=== PATIENT | male | born 1985 | race Caucasian/White ===

== ENCOUNTER 2021-04-07 15:49 | Outpatient (CLI) | payer BC, SELFPAY ==
--- NOTE | ~2021-04-07 | US_ITS ---
US scrotum doppler DATE: 04/07/2021 16:48 INDICATION: Left scrotal mass TECHNIQUE: Real-time imaging and color flow imaging of the scrotal contents COMPARISON: None FINDINGS: The right testicle measures 5.1 x 2.7 x 2.7 cm. The left testicle measures 4.8 x 2.3 x 3.5 cm. No testicular mass lesion or torsion is detected. There is an 8 x 7 x 8 mm extratesticular hypoechoic soft tissue lesion inferior to the left testicle. There is surrounding hypervascularity. This may represent epididymitis at the tail of the epididymis or other inflammatory or infectious process. No hydrocele or varicocele is demonstrated. IMPRESSION: Focal 8 x 7 x 8 mm hypoechoic solid area inferior to the left testicle with surrounding v ascularity, likely inflammatory or infectious. Consider epididymitis of the left epididymal tail No evidence of testicular mass lesion or torsion Reviewed, dictated and finalized at [facility]. Reviewed, dictated and finalized at [facility]. IMPRESSION: Focal 8 x 7 x 8 mm hypoechoic solid area inferior to the left testi ritesh with surrounding vascularity, likely inflammatory or infectious. Consider e pididymitis of the left epididymal tail No evidence of testicular mass lesion or torsion
== END 2021-04-07 15:50 | disposition home or self-care (01) ==
PROVIDERS: PCP Physician Assistant; Visit Provider Nurse Practitioner Adult Health
DX: N50.89 Other specified disorders of the male genital organs (principal)
CPT/HCPCS: 76870; 93976

== ENCOUNTER 2021-05-07 16:04 | Outpatient (CLI) | payer BC, SELFPAY ==
--- NOTE | ~2021-05-07 | US_ITS ---
EXAMINATION: US scrotum doppler EXAM DATE: 05/07/2021 16:39 INDICATION: Mass of left testicle/epididymis, 1 month f/u following antibiotics. TECHNIQUE: Multiple grayscale and Doppler images of the testicles and scrotum were obtained bilateral ly. Comparison is made to prior examination from 04/07/2021. FINDINGS: Right testicle measures 5.2 x 4.0 x 2.6 cm and is morphologically normal. Low resistance Doppler heather w confirmed. The epididymis is unremarkable. There is no hydrocele or varicocele. Left testicle measures 4.4 x 3.4 x 2.2 cm and is morphologically normal. Low resistance Doppler flow confirmed. Epididymal head and body are unremarkable. In region of the tail of the epididymis again there is hypoechoic masslike region measuring 7 x 6 x 8 mm. No vascularity demonstrated within this. On couple of the images there is possibility of anechoic fluid layering on top of more homogeneous pr oteinaceous fluid dependently. On prior study this also appears without vascularity, but with surroun ding hypervascularity likely inflammation which has resolved. There is no hydrocele or varicocele. IMPRESSION: Persistent lesion in region of left epididymal tail, possibly proteinaceous cystic versus avascular solid. Given that this is reportedly clinically palpable could consider obtaining clinical follow-up and repeat imaging if it enlarges. Or histologic correlation as indicated clinically. Reviewed, dictated and finalized at [facility]. [employer] IMPRESSION: Persistent lesion in region of left epididymal tail, possibly prote inaceous cystic versus avascular solid. Given that this is reportedly clinicall y palpable could consider obtaining clinical follow-up and repeat imaging if it enlarges. Or histologic correlation as indicated clinically.
== END 2021-05-07 16:05 | disposition home or self-care (01) ==
PROVIDERS: PCP Physician Assistant; Visit Provider Nurse Practitioner Adult Health
DX: N50.89 Other specified disorders of the male genital organs (principal)
CPT/HCPCS: 76870; 93976

== ENCOUNTER 2023-05-11 13:21 | Emergency (ER) | payer BC, SELFPAY ==
--- NOTE | ~2023-05-11 | XR_ITS ---
EXAM: XR lumbar spine 2-3V DATE: 05/11/2023 14:47 HISTORY: mid low back pain,injured one week ago doing squats . COMPARISON: None available. FINDINGS: 5 nonrib-bearing lumbar-type vertebral bodies. Lumbar straightening with a mild angular la teral kyphosis centered at L3-4. Pedicles intact. Normal vertebral body alignment. Vertebral body hei ghts preserved. Mild disc space narrowing at L4-5 and L5-S1. Normal facets and posterior elements. No fracture or dislocation. IMPRESSION: No acute fracture or traumatic malalignment detected in the lumbar spine. Reviewed, dictated and finalized at location [facility]. [employer]
[2023-05-11 13:46] VITALS: BP 120/95; PULSE 85; RESP 16; TEMP 36.9; O2SAT 100
--- NOTE | 2023-05-11 14:16 | ED.BACK ---
HPI - Back Pain/Injury General Chief Complaint: Back Pain/Injury Stated Complaint: LOW BACK PAIN Time Seen by Provider: 05/11/23 14:16 Source: patient, RN notes reviewed and old records reviewed Mode of arrival: ambulatory Limitations: no limitations History of Present Illness HPI Narrative: 37 year old male who [facility] with complaints of lumbar back pain which initially started a week from last Tuesday when he was doing squats. Patient states that he rested for a week before exercising again and yesterday he resumed exercising and was doing lifts and now today back pain has increased. Patient reports that he has no radiation of pain down his legs, denies any bowel or bladder dysfunction or any saddle paraesthesia. MD elicited complaint: back pain and back injury Pertinent past history: other (hurt back exercising) Onset (ago): week(s) (initially 10 days ago) Pain scale (0-10): 4 Location: lumbar spine Radiation: none Exacerbating factors: movement and other (changing positions) Treatments prior to arrival: NSAIDS and other (rest) Related Data Allergies Allergy/AdvReac Type Severity Reaction Status Date / Time No Known Allergies Allergy Unverified 02/01/23 08:19 Review of Systems Review of Systems: CONSTITUTIONAL: Denies fever, chills, or sweats. CARDIOVASCULAR: Denies chest pain, palpitations, or edema. RESPIRATORY: Denies cough or dyspnea. GASTROINTESTINAL: Denies abdominal pain, nausea, vomiting, or diarrhea. GENITOURINARY: Denies dysuria or hematuria. SKIN: Denies rash or itching. MUSCULOSKELETAL: Reports lumbar back pain. no other Joint pain or myalgia. NEUROLOGIC: Denies headache, numbness, or weakness. All systems reviewed & are unremarkable except as noted in HPI and below [facility] Family History Family History (System 02/01/23 @ 08:19 by Malcolm Alejo) Father Hypertension Father Hypertension Sibling Hypertension Social History Social History (System 02/01/23 @ 08:19 by Malcolm Alejo) Smoking status: Never smoker Second hand tobacco smoke exposure: No Alcohol intake: current Substance use: unknown Lack of Transportation: No Lack of Food: Never True Current Housing: I Have Housing Concerned About Future Housing: No Difficulty Paying Gas/Electric Bills: No Difficulty Paying for Meds: No Currently Unemployed: No Education: Master's Degree or Higher Difficulty w/ Childcare or Family Care: No Comments At time of signature, agree with nursing past medical, surgical, social and family history. There is no relevant family history pertinent to the presenting complaint Exam Narrative: GENERAL: Well-appearing, well-nourished, and in no acute distress. HEAD: Normocephalic, atraumatic. EYES: PERRLA and EOMI. NECK: Supple. No lymphadenopathy. CHEST: Clear to auscultation. No respiratory distress.SAO2 100% on room air HEART: Regular rate and rhythm. Distal pulses palpable and equal, cap refill <3 seconds ABDOMEN: Soft, nontender, nondistended, normal active bowel sounds, no palpable or pulsatile masses. No CVA tenderness MUSCULOSKELETAL: Normal range of motion and strength in all extremities; 5/5 strength with hip flexion and extension, dorsiflexion and extension, knee flexion and extension, plantar flexion and extension. Normal sensation in dermatomal distributions with sensitivity to light touch and pain. No midline back tenderness to palpation. No paraspinal tenderness. Transfers from lying to sitting to standing.with some discomfort SKIN: Warm, dry, no rash. No ecchymosis, erythema, open wounds to back. NEURO: No focal deficits. Alert and oriented x3. Reflexes intact. Normal gait. PSYCH: Normal mood and affect Course Course Emergency Course: Patient is aware of diagnosis, understands and agrees to treatment plan. Anticipatory guidance given. Patient agrees to follow-up as directed and is aware of reasons to seek care at the emergency depa
== END 2023-05-11 15:24 | disposition home or self-care (01) ==
PROVIDERS: Emergency Provider Registered Nurse; PCP Physician Assistant
DX: M54.50 Low back pain, unspecified (principal)
CPT/HCPCS: 72100; 99213; G0463